=== PATIENT | male | born 1950 | race Caucasian/White ===

== ENCOUNTER → 2021-02-17 | Outpatient (CLI) | payer OTHER ==
[~2021-02-17] VITALS: Ht 175.3 cm; Wt 81.7 kg
[~2021-02-17] MED LIST: ASA81BEC PO; BENAZEPRIL-HCT1 EA11 PO; CARVEDILOL25 MG PO; GLUCOTROL10 MG PO; LEVOTHYROXINE200 MC2 PO; METFORMIN HCL500 MG PO; SIMVASTATIN40 MG PO
--- NOTE | 2021-02-18 13:24 | P ---
[facility] [place] [address] PROCEDURE REPORT Name: LOS ESPINOSA Room #: REG [facility]#: [id number] Admission: 02/17/21 Attend Phys: Jagjit Gonzalez Discharge: Date of : 48 Report #: [id number] THIS REPORT FOR: cc: Zana Trejo MD, Charles W. MD McElhinney, Christian C. MD ~ cc: Zana Trejo MD DATE OF SERVICE: 02/17/2021 PROCEDURE PERFORMED: Colonoscopy with biopsies. HISTORY OF PRESENT ILLNESS: The patient is a 70-year-old male with a history of colon polyps in 2007, presents for a repeat colonoscopy. He denies any symptoms at this time. No family history of colon cancer. DESCRIPTION OF PROCEDURE: The risks and benefits of the procedure were explained to the patient; those risks including but not limited to bleeding, perforation and the risk of sedation. He understood these risks and gave informed consent. Sedation was given using propofol per anesthesia. Next, a digital rectal exam was initially performed, which was normal. Next, using a standard Olympus colonoscope, the scope was placed in the patient's anus and advanced under direct vision to the cecum. The overall prep was good. In the cecum, there was a 3 mm sessile polyp; this was removed with cold forceps, otherwise normal. The ileocecal valve was normal. Diverticulosis was noted throughout the ascending colon, otherwise normal. Transverse colon was normal. Diverticulosis noted in the descending and sigmoid colon. No evidence of inflammation, otherwise normal. The rectal mucosa was normal. On retroflexion, small nonbleeding internal hemorrhoids were noted. The scope was then withdrawn and the procedure terminated. The patient tolerated the procedure well. IMPRESSION: 1. Diverticulosis. 2. Small colonic polyp. 3. Internal hemorrhoids. 4. Otherwise, normal colonoscopy. RECOMMENDATIONS: 1. Await biopsy results. 2. If polyp is hyperplastic, repeat in 10 years; if adenomatous polyp, repeat in [address] [address] PROCEDURE REPORT Name: LOS ESPINOSA Room #: REG Reinaldo Ramirez.#: [id number] Admission: 02/17/21 Attend Phys: Jagjit Gonzalez Discharge: Date of : 48 Report #: [id number] Thank you for allowing me to participate in his care. <ELECTRONICALLY SIGNED> By: Jagjit Fish MD 02/18/21 1324 [id number] [id number] Jagjit Fish MD /nt
--- NOTE | 2021-02-19 17:06 | PATH ---
[facility] [address] [place] [address] PATHOLOGY RPT PROCEDURE Name: LOS ESPINOSA Room #: REG CL M..#: [id number] Admission: 02/17/21 Date of : 48 Discharge: Report #: [id number] Path Case #: [id number] [facility] Accession Number: [id number] . 01 Material submitted: . cecum - CECUM POLYP . 01 Clinical history: . COLONOSCOPY DTS/COLONOSCOPY/HISTORY OF POLYPS . 02 Diagnosis: Polyp, cecum, endoscopic biopsy: - Minute tubular adenoma. - Negative for high-grade dysplasia. (IUV:pit; 02/19/2021) QTP 02/19/2021 1428 Local . 02 Electronically signed: . Anila Balbuena MD, Pathologist NPI- [id number] . 01 Gross description: . The specimen is received in formalin, labeled "Moradian, Mohammad and cecum polyp". It consists of a rosas polypoid soft tissue fragment measuring 0.2 x 0.2 x 0.1 cm. The specimen is entirely submitted between sponges in A1. (MRF; 02/18/2021) MFE/MFE 02/18/2021 1740 Local . 02 Pathologist provided ICD-10: D12.0 . 02 CPT . 746995 Specimen Comment: A courtesy copy of this report has been sent to [phone] Specimen Comment: [phone] Specimen Comment: Report sent to / DR BOB Performed at: [address], [place] [id number] MD Kieran Rasmussen MD Phone: [phone] Performed at: [address] [id number] MD Anila Balbuena MD Phone: [phone]
== END | disposition home or self-care (01) ==
LOC: GI 09:42
PROVIDERS: ATTEND Specialist
DX: Z12.11 Encounter for screening for malignant neoplasm of colon (principal); Z86.010 Personal history of colon polyps; D12.0 Benign neoplasm of cecum; K57.30 Diverticulosis of large intestine without perforation or abscess without bleeding; K64.8 Other hemorrhoids; I10 Essential (primary) hypertension; E11.9 Type 2 diabetes mellitus without complications; E78.5 Hyperlipidemia, unspecified; F17.210 Nicotine dependence, cigarettes, uncomplicated; Z98.890 Other specified postprocedural states; Z79.899 Other long term (current) drug therapy
CPT/HCPCS: 62110; 62900